=== PATIENT | female | born 1985 | race Caucasian/White ===

== ENCOUNTER 2017-07-28 09:20 | Outpatient (CLI) | payer BC | END 2017-07-28 09:21 | disposition home or self-care (01) | LOC: CTENTCT 09:20 | PROVIDERS: ATTEND Otolaryngology Plastic Surgery within the Head & Neck | DX: J32.8 Other chronic sinusitis (principal) | CPT/HCPCS: 70486 ==

== ENCOUNTER 2020-06-16 11:04 | Outpatient (CLI) | payer OTHER | END 2020-06-16 11:05 | disposition home or self-care (01) | LOC: CTENTCT 11:04 | PROVIDERS: ATTEND Otolaryngology Plastic Surgery within the Head & Neck | DX: J32.9 Chronic sinusitis, unspecified (principal) | CPT/HCPCS: 70486 ==